=== PATIENT | female | born 1990 | race Caucasian/White ===

== ENCOUNTER 2021-03-04 21:20 | Emergency (ER) | payer OTHER, SELFPAY ==
[2021-03-04 21:53] VITALS: BP 145/93; PULSE 104; RESP 18; TEMP 36.5; O2SAT 100
--- NOTE | 2021-03-04 23:24 | ED.GENADULT ---
HPI - General Adult General Chief complaint: Ear Stated complaint: ear pain Time Seen by Provider: 03/04/21 23:18 Source: patient History of Present Illness HPI narrative: Patient is a 30 y/o female complaining of severe left ear pain starting today. She describes her pain as throbbing. There is no alleviating or exacerbating factor. She denies any fever. Related Data Home Medications Medication Instructions Recorded Confirmed acetazolamide 09/24/19 albuterol sulfate INHALATION 09/24/19 alprazolam 09/24/19 sertraline mg 09/24/19 sumatriptan succinate mg PO 09/24/19 zonisamide 09/24/19 Allergies Allergy/AdvReac Type Severity Reaction Status Date / Time No Known Allergies Allergy Verified 02/25/18 18:28 Review of Systems Constitutional: Constitutional: Denies chills, Denies fever(s), Denies headache(s) and Denies weakness Eyes: Eyes: Denies blurry vision ENT: Reports otalgia, Denies headache(s) and Denies neck pain Cardiovascular: Cardiovascular: Denies chest pain and Denies dyspnea Respiratory: Respiratory: Denies cough and Denies dyspnea Gastrointestinal: Gastrointestinal: Denies abdominal pain, Denies diarrhea, Denies nausea and Denies vomiting Genitourinary: Genitourinary: Denies hematuria and Denies dysuria Musculoskeletal: Musculoskeletal: Denies back pain and Denies neck pain Neurologic: Denies headache(s) and Denies weakness Exam Const: General: no acute distress and well developed Orientation/consciousness: oriented to person, oriented to place, oriented to time and patient oriented x3 HENMT: Head: normocephalic Ears: external ears normal and TM abnormal erythematous on the left General nose exam: Normal external nose present Eyes: General: appearance normal, both eyes and all related structures Conjunctivae: conjunctivae normal Neck: Neck: normal visual inspection and full ROM Chest: Chest palpation & inspection: tenderness Resp: Effort & Inspection: normal respiratory effort Skin: General skin exam: normal color and turgor normal Neuro: General: oriented to person, oriented to place, oriented to time and patient oriented x3 Cognition (Neuro): normal cognition Extrem: General: normal to inspection, full ROM and no pedal edema Course Vital Signs Vital signs: Vital Signs Temperature 36.5 C 03/04/21 21:53 Pulse Rate 104 H 03/04/21 21:53 Respiratory Rate 18 03/04/21 21:53 Blood Pressure 145/93 H 03/04/21 21:53 Pulse Oximetry 100 03/04/21 21:53 Temperature 36.5 C 03/04/21 21:53 Pulse Rate 104 H 03/04/21 21:53 Respiratory Rate 18 03/04/21 21:53 Blood Pressure 145/93 H 03/04/21 21:53 Pulse Oximetry 100 03/04/21 21:53 Medical Decision Making Vital Signs Vital Signs: Vital Signs Temperature 36.5 C 03/04/21 21:53 Pulse Rate 104 H 03/04/21 21:53 Respiratory Rate 18 03/04/21 21:53 Blood Pressure 145/93 H 03/04/21 21:53 Pulse Oximetry 100 03/04/21 21:53 Temperature 36.5 C 03/04/21 21:53 Pulse Rate 104 H 03/04/21 21:53 Respiratory Rate 18 03/04/21 21:53 Blood Pressure 145/93 H 03/04/21 21:53 Pulse Oximetry 100 03/04/21 21:53 Discharge Plan Discharge Clinical Impression: Otitis media Patient Disposition: Home, Self-Care Condition: Stable Instructions: Antibiotic Form, Infecci?n del o?do (ED) Prescriptions: New amoxicillin 500 mg tablet 500 mg PO TID Qty: 30 RF: 0 No Action sumatriptan succinate 100 mg tablet PO RF: 0 acetazolamide 250 mg tablet RF: 0 zonisamide 100 mg capsule RF: 0 alprazolam 0.5 mg tablet RF: 0 albuterol sulfate 90 mcg/actuation HFA aerosol inhaler INHALATION RF: 0 sertraline 50 mg tablet RF: 0 ofloxacin 0.3 % drops 10 drop EACH EAR DAILY 7 Days Qty: 5 RF: 0 Follow-up/Referrals: Nasra,SARAHY Kamara [Primary Care Provider] -
== END 2021-03-04 23:30 | disposition home or self-care (01) ==
PROVIDERS: Emergency Provider Emergency Medicine; PCP Registered Nurse
DX: H66.92 Otitis media, unspecified, left ear (principal)
CPT/HCPCS: 99283

== ENCOUNTER 2022-07-11 18:42 | Emergency (ER) | payer OTHER, SELFPAY ==
[2022-07-11 18:50] VITALS: BP 147/98; PULSE 104; RESP 18; TEMP 37.3; O2SAT 98
--- NOTE | 2022-07-11 19:14 | ED.EAR ---
HPI - Ear Problem General Stated complaint: Right ear swollen Time Seen by Provider: 07/11/22 19:00 Source: patient Mode of arrival: ambulatory Limitations: no limitations History of Present Illness HPI Narrative: Ms. Isaacs is a 32-year-old female patient presenting to the clinic today with complaints of right ear pain. She reports that her ear is swollen and she is having difficulty hearing from it. She denies any recent swimming or putting her head underwater. Related Data Home Medications Medication Instructions Recorded Confirmed acetazolamide 250 mg tablet 09/24/19 albuterol sulfate 90 mcg/actuation inhalation 09/24/19 aerosol inhaler alprazolam 0.5 mg tablet 09/24/19 sertraline 50 mg tablet mg 09/24/19 sumatriptan succinate 100 mg tablet mg PO 09/24/19 zonisamide 100 mg capsule 09/24/19 Allergies Allergy/AdvReac Type Severity Reaction Status Date / Time No Known Allergies Allergy Verified 02/25/18 18:28 Review of Systems Review of Systems: Pertinent positives per HPI. Patient denies any fever, chills, rash, headache, visual changes, dizziness, cough, runny nose, sore throat, shortness of breath, chest pain, palpitations, nausea, vomiting, diarrhea, constipation, abdominal pain, or any urinary issues. PMFSH Comments At the time of my signature, I reviewed and agree with the nursing past medical, surgical, social, and family history. There is no relevant family history pertinent to the patient complaint. Exam Narrative: General: Well-developed, well nourished, in no apparent distress Head: Normocephalic, atraumatic Eyes: Pupils equally round and reactive to light bilaterally, EOM intact, sclera and conjunctive clear, no discharge, lids normal Ears: TMs intact and clear, right ear canals swollen, erythemic, with white exudate, pain going on the right pinna and pulling of the tragus, grossly hearing normal. Nose: Nares patent, no discharge, no inflammation, no sinus tenderness. Mouth: Oropharynx without lesions or masses, good dentition, MMM. Neck: Supple, trachea midline, no enlargement of anterior or posterior cervical nodes, no thyroid masses or goiter palpable. Cardio: Regular rate and rhythm, s1 and s2 normal, no murmur appreciated. Resp: Clear to auscultation bilaterally anteriorly and posteriorly, no rhonchi, rales, wheezing or rubs Course Course Emergency Course: Portions of this record may have been created with voice recognition software. Level of Care: Express Care Visit Vital Signs Vital signs: Vital Signs Temperature 37.3 C 07/11/22 18:50 Pulse Rate 104 H 07/11/22 18:50 Respiratory Rate 18 07/11/22 18:50 Blood Pressure 147/98 H 07/11/22 18:50 Pulse Oximetry 98 07/11/22 18:50 Oxygen Delivery Room Air 07/11/22 18:50 Temperature 37.3 C 07/11/22 18:50 Pulse Rate 104 H 07/11/22 18:50 Respiratory Rate 18 07/11/22 18:50 Blood Pressure 147/98 H 07/11/22 18:50 Pulse Oximetry 98 07/11/22 18:50 Oxygen Delivery Room Air 07/11/22 18:50 Vital signs reviewed Medical Decision Making MDM Narrative Medical decision making narrative: At the time of visit patient is resting comfortably on the exam table. She has diffuse right otitis externa. Ofloxacin eardrops were prescribed for the patient. Supportive measures were discussed and patient voiced understanding of discharge instructions and agrees to treatment plan Differential Diagnosis Differential Diagnosis: Otitis media, otitis externa, eustachian tube dysfunction, otalgia Vital Signs Vital Signs: Vital Signs Temperature 37.3 C 07/11/22 18:50 Pulse Rate 104 H 07/11/22 18:50 Respiratory Rate 18 07/11/22 18:50 Blood Pressure 147/98 H 07/11/22 18:50 Pulse Oximetry 98 07/11/22 18:50 Oxygen Delivery Room Air 07/11/22 18:50 Temperature 37.3 C 07/11/22 18:50 Pulse Rate 104 H 07/11/22 18:50 Respiratory Rate 18 07/11/22 18:50 Blood Pressure 147/98 H 08
== END 2022-07-11 19:25 | disposition home or self-care (01) ==
PROVIDERS: Emergency Provider Nurse Practitioner Family
DX: H60.311 Diffuse otitis externa, right ear (principal)
CPT/HCPCS: 99213; G0463

== ENCOUNTER 2022-07-13 12:41 | Emergency (ER) | payer OTHER, SELFPAY ==
--- NOTE | ~2022-07-13 | CT_ITS ---
EXAMINATION: CT facial bones wo con DATE: 07/13/2022 14:09 INDICATION: R mastoid tenderness, otitis externa . TECHNIQUE: Computed tomography (CT) of the facial bones and maxillofacial region was performed withou t intravenous contrast. Automated exposure control and iterative reconstruction technique were employ ed. The dose-length product was 695.38 mGy-cm. COMPARISON: None. FINDINGS: Soft Tissues: Soft tissue thickening in the bilateral external auditory meati, worse on the right. E nlarged adenoids. Bilateral cervical lymphadenopathy. Prominent but not pathologically enlarged bilat eral parotid lymph nodes. Mild enlargement inflammatory stranding in the right parotid gland. Facial bones: No acute fracture. No lytic or blastic process. No mastoid erosions. The ossicles are intact. Eyes: The globes are intact. The soft tissue planes of the orbits are maintained. Paranasal Sinuses: Minimal aerated secretion in an anterior ethmoid air cell on the right. Retention cyst or polyp in the right inferior maxillary sinus. Bilateral mastoid fluid. Foreign Bodies: No radiopaque foreign bodies. Other Findings: None. IMPRESSION: Bilateral otitis externa and otitis media, more severe on the right. Bilateral mastoid effusions. Mil d right parotiditis. Cervical and adenoid lymphadenopathy. Reviewed, dictated and finalized at location [facility]. IMPRESSION: Bilateral otitis externa and otitis media, more severe on the right. Bilateral mastoid effusions. Mild right parotiditis. Cervical and adenoid lymphadenopathy .
[2022-07-13 12:53] VITALS: BP 152/90; PULSE 96; RESP 20; TEMP 36.5; O2SAT 98
[2022-07-13] MEDS: OFLOXACIN 0.3% OPHTH SOLN 5 ML BTL 3 DROP EACH EAR (14:14)
[2022-07-13 14:29] LABS: Basophils Absolute Auto 0.1 K/mm3 (0.0-0.1); Basophils Percent Auto 0.5 % (0.2-1.2); Eosinophils Absolute Auto 0.1 K/mm3 (0-0.3); Eosinophils Percent Auto 1.1 % (0-4.4); Hematocrit 43.4 % (37.0-47.0); Hemoglobin 13.8 g/dL (12.0-15.0); Immature Granulocyte Absolute 0.05 K/mm3 (0.00-0.031); Immature Granulocyte Percent A 0.4 % (0-0.5); Lymphocytes Absolute Auto 3.09 K/mm3 (0.9-3.2); Lymphocytes Percent Auto 27.2 % (18.3-44.2); Mean Corpuscular HGB Conc 31.8 g/dl (32-36); Mean Corpuscular Hemoglobin 27.7 pg (26-34); Mean Corpuscular Volume 87.1 fl (80-100); Mean Platelet Volume 9.3 fl (7.4-10.4); Monocytes Absolute Auto 0.8 K/mm3 (0.1-0.6); Monocytes Percent Auto 7.3 % (2.6-8.5); Neutrophils Absolute Auto 7.2 K/mm3 (1.3-6.7); Neutrophils Percent Auto 63.5 % (45.5-73.1); Platelet Count Result 343 k/mm3 (150-375); Red Blood Count 4.98 M/mm3 (4.2-5.4); Red Cell Distribution Width 16.1 % (11.5-14.5); White Blood Count 11.4 K/mm3 (4.5-10.0)
[2022-07-13 14:39] LABS: Anion Gap 9 mmol/L (8-16); Blood Urea Nitrogen 7 mg/dL (7-17); Calcium 9.1 mg/dL (8.4-10.2); Carbon Dioxide 28 mmol/L (22-30); Chloride 99 mmol/L (98-107); Estimated CRCL calculation 152 ml/min; Estimated Glomerular Filt Rate > 60; Glucose 124 mg/dL (65-110); Potassium 4.2 mmol/L (3.4-5.0); Sodium 136 mmol/L (137-145)
--- NOTE | 2022-07-13 14:44 | ED.EAR ---
HPI - Ear Problem General Chief complaint: Ear <LISA Sandoval Last Filed: 07/13/22 19:02> Stated complaint: ear swelling <LISA Sandoval Last Filed: 07/13/22 19:02> Time Seen by Provider: 07/13/22 13:46 <LISA Sandoval Last Filed: 07/13/22 19:02> History of Present Illness HPI Narrative: Patient is a 32-year-old female here for evaluation of bilateral ear swelling and pain, R>L over the past several days. She was seen at an urgent care facility upon symptom onset and was prescribed topical antibiotics for presumed otitis externa. She has been using the antibiotics as prescribed, but notes that her ear has continued to swell, and now notes that she cannot get the medication and due to the swelling. Additionally notes some pain behind her ear. Denies any fevers or chills, nausea or vomiting, history of diabetes. <LISA Sandoval Last Filed: 07/13/22 19:02> Related Data Home medications: Home Medications Medication Instructions Recorded Confirmed acetazolamide 250 mg tablet 250 mg PO DAILY 09/24/19 07/11/22 albuterol sulfate 90 mcg/actuation 2 inh inhalation DIRECTED 09/24/19 07/11/22 aerosol inhaler alprazolam 0.5 mg tablet 0.5 mg PO DIRECTED 09/24/19 07/11/22 sumatriptan succinate 100 mg tablet 100 mg PO DIRECTED 09/24/19 07/11/22 zonisamide 100 mg capsule 100 mg PO DAILY 09/24/19 07/11/22 <LISA Sandoval Last Filed: 07/13/22 19:02> Allergies/adverse reactions: Allergies Allergy/AdvReac Type Severity Reaction Status Date / Time No Known Allergies Allergy Verified 07/11/22 19:28 <LISA Sandoval Last Filed: 07/13/22 19:02> Review of Systems Review of Systems: Gen: Denies fevers or chills Eyes: Denies eye pain or visual change ENT: Reports bilateral ear pain. Denies congestion Respiratory: Denies shortness of breath or cough CV: Denies chest pain or palpitations GI: Denies abdominal pain nausea, emesis or diarrhea : denies burning, urgency, frequency or hematuria Musculoskeletal: Denies back pain or muscle pain Neuro: Denies numbness, tingling, weakness or focal weakness Skin: Denies rash Except as documented, all other systems reviewed and negative <Dinora Gonzalez PA-C - Last Filed: 07/13/22 19:02> Exam Narrative: APPEARANCE: Well appearing, no pain in distress, well-nourished. Obese. Head: Normocephalic and atraumatic. EYES: PERRLA/EOMI, conjunctivae clear NOSE: No nasal drainage EARS: Right ear is swollen and erythematous in appearance obscuring canal. Left ear is swollen and erythematous as well but the canal is not obscured. She has tenderness over her right mastoid bone, no overlying erythema. THROAT: Oropharynx is clear. Mucous membranes are moist. NECK: Supple. No adenopathy, no masses. RESPIRATORY: Airway patent, respirations nonlabored. Clear to auscultation bilaterally, no rales, rhonchi, wheezing. CARDIOVASCULAR: Regular rate and rhythm without murmurs, rubs, or gallops. ABDOMINAL: Normoactive bowel sounds. Soft, nontender, nondistended. No rebound tenderness or guarding. MUSCULOSKELETAL: Extremities are warm and well-perfused. Moves all extremities well. No edema. NEURO: Normal speech. No focal neurologic deficits. SKIN: Skin is warm and dry. No rashes. PSYCHIATRIC: Normal affect/mood. <Dinora Gonzalez PA-C - Last Filed: 07/13/22 19:02> Course SHOP REPAIRER/PA Physician Supervision For this patient encounter, I reviewed the SHOP REPAIRER or PA documentation, treatment plan, and medical decision making <Bobby George MD - Last Filed: 07/13/22 20:18> Vital Signs Vital signs: Vital Signs Temperature 97.7 F 07/13/22 12:53 Pulse Rate 96 07/13/22 12:53 Respiratory Rate 20 07/13/22 12:53 Blood Pressure 152/90 H 07/13/22 12:53 Pulse Oximetry 98 07/13/22 12:53 Oxygen Delivery Room Air 07/13/22 12:53 Temperature 97.7 F
== END 2022-07-13 15:20 | disposition home or self-care (01) ==
PROVIDERS: Physician Assistant; Emergency Provider Emergency Medicine
DX: H60.93 Unspecified otitis externa, bilateral (principal); H66.93 Otitis media, unspecified, bilateral
CPT/HCPCS: 36415; 70486; 80048; 85025; 99284; A9270

== ENCOUNTER 2022-09-29 17:45 | Emergency (ER) | payer OTHER, SELFPAY ==
[2022-09-29 18:20] VITALS: BP 158/83; PULSE 92; RESP 20; TEMP 37.3; O2SAT 100
--- NOTE | 2022-09-29 18:37 | ED.EAR ---
HPI - Ear Problem General Chief complaint: Ear Stated complaint: Right Ear Irritation Time Seen by Provider: 09/29/22 18:37 Source: patient Mode of arrival: ambulatory Limitations: no limitations History of Present Illness HPI Narrative: 32-year-old female presents with complaint of right ear pain for 2 days. Reports decreased hearing. Afebrile. Reports history of multiple ear infections. Has never seen ENT. All systems reviewed and negative except as noted above. Related Data Home Medications Medication Instructions Recorded Confirmed acetazolamide 250 mg tablet 250 mg PO DAILY 09/24/19 09/29/22 albuterol sulfate 90 mcg/actuation 2 inh inhalation DIRECTED 09/24/19 09/29/22 aerosol inhaler alprazolam 0.5 mg tablet 0.5 mg PO DIRECTED 09/24/19 09/29/22 sumatriptan succinate 100 mg tablet 100 mg PO DIRECTED 09/24/19 09/29/22 zonisamide 100 mg capsule 100 mg PO DAILY 09/24/19 09/29/22 Allergies Allergy/AdvReac Type Severity Reaction Status Date / Time No Known Allergies Allergy Verified 09/29/22 18:04 Review of Systems Review of Systems: CONSTITUTIONAL: Denies fever, chills, or sweats. EYES: Denies visual changes, redness, or discharge. ENT: Denies rhinorrhea, congestion, sore throat . Reports right ear pain. CARDIOVASCULAR: Denies chest pain, palpitations, or edema. RESPIRATORY: Denies cough or dyspnea. GASTROINTESTINAL: Denies abdominal pain, nausea, vomiting, or diarrhea. GENITOURINARY: Denies dysuria or hematuria. SKIN: Denies rash or itching. MUSCULOSKELETAL: Denies back pain, joint pain, or myalgia. NEUROLOGIC: Denies headache, numbness, or weakness. PSYCHIATRIC: Denies anxiety or depression. All other systems reviewed are negative, except as documented in HPI. PMFSH Comments At time of signature, agree with nursing past medical, surgical, social and family history. There is no relevant family history pertinent to the presenting complaint. Exam Narrative: GENERAL: This is a well-nourished, well-developed patient, in no apparent distress. HEAD: normocephalic, atraumatic. EYES: PERRL. Sclera clear/white. Vision is grossly intact. EARS: External ears normal, Bilateral TMs normal. Right ear canal is erythematous, mildly swollen with yellow milky drainage. Left ear canal is normal. NOSE: External nose normal NECK: Neck supple, non-tender without lymphadenopathy, masses or thyromegaly. CARDIOVASCULAR: Regular rate and rhythm without murmurs, gallops, or rubs. RESPIRATORY: Clear to auscultation. Breath sounds equal bilaterally. No wheezes, rales, or rhonchi. SKIN: warm, Dry, intact with no suspicious lesions or rash, good texture and turgor. NEURO: awake, alert, and oriented to person, place and time. There were no obvious focal neurologic abnormalities. EXTREMITIES: No joint tenderness, effusion, or edema noted. Course Course Level of Care: Express Care Visit Vital Signs Vital signs: Reviewed Medical Decision Making MDM Narrative Medical decision making narrative: Patient is aware of diagnosis, understands and agrees to treatment plan. Anticipatory guidance given. Patient agrees to follow-up as directed and is aware of reasons to seek care at the emergency department. Portions of this record may have been created with voice recognition software Discharge Plan Discharge Clinical Impression: Acute otitis externa of right ear Patient Disposition: Home, Self-Care Condition: Stable Instructions: Antibiotic Form, Swimmer's Ear (ED) Additional Instructions: Place eardrops as prescribed. Take ibuprofen every 6-8 hours to treat your pain. Follow-up with your primary care physician if symptoms not improving. Prescriptions: New [id number] 3.5-10,000-1 mg/mL-unit/mL-% drops,suspension 4 drp RIGHT EAR Q8H 10 Days Qty: 10 0RF No Action sumatriptan succinate 100 mg tablet 100 mg PO DIRECTED acetazolamide 250 mg tablet 250 mg
== END 2022-09-29 18:42 | disposition home or self-care (01) ==
PROVIDERS: Emergency Provider Nurse Practitioner Family; PCP Registered Nurse
DX: H60.91 Unspecified otitis externa, right ear (principal)
CPT/HCPCS: 99213; G0463

== ENCOUNTER 2022-10-04 10:57 | Emergency (ER) | payer OTHER, SELFPAY ==
[2022-10-04 11:04] VITALS: BP 137/77; PULSE 94; RESP 20; TEMP 36.4; O2SAT 98
--- NOTE | 2022-10-04 11:12 | ED.EAR ---
HPI - Ear Problem General Chief complaint: Ear Stated complaint: Left ear pain Time Seen by Provider: 10/04/22 11:12 Source: patient, RN notes reviewed and old records reviewed Mode of arrival: ambulatory Limitations: no limitations History of Present Illness HPI Narrative: 32-year-old female presents to the [facility] with complaints of left ear pain was here on Friday with the same complaint But in the right ear, Prescribed ear drops. Denies fevers. No mastoid tenderness. No external redness or swelling Denies any sinus issues Related Data Home Medications Medication Instructions Recorded Confirmed acetazolamide 250 mg tablet 250 mg PO DAILY 09/24/19 10/04/22 albuterol sulfate 90 mcg/actuation 2 inh inhalation DIRECTED 09/24/19 10/04/22 aerosol inhaler alprazolam 0.5 mg tablet 0.5 mg PO DIRECTED 09/24/19 10/04/22 sumatriptan succinate 100 mg tablet 100 mg PO DIRECTED 09/24/19 10/04/22 zonisamide 100 mg capsule 100 mg PO DAILY 09/24/19 10/04/22 Allergies Allergy/AdvReac Type Severity Reaction Status Date / Time No Known Allergies Allergy Verified 10/04/22 11:20 Review of Systems Review of Systems: All systems reviewed & are unremarkable except as noted in HPI and below Constitutional: Constitutional: Reports no additional constitutional complaints, Denies chills and Denies fever(s) Eyes: Eyes: Reports no additional eye complaints ENT: Reports as per HPI Cardiovascular: Cardiovascular: Reports no additional cardiovascular complaints Respiratory: Respiratory: Reports no additional respiratory complaints Gastrointestinal: Gastrointestinal: Reports no additional gastrointestinal complaints Musculoskeletal: Musculoskeletal: Reports no additional musculoskeletal complaints Integumentary/Breasts: Skin/Breast: Reports system reviewed and no additional complaints, except as docu Neurologic: Reports system reviewed and no additional complaints, except as documented Psychiatric: Psychiatric: Reports no additional psychiatric complaints Allergic/Immunologic: Allergic/Immunologic: Reports no additional allergic/immunologic complaints PMFSH Past Medical History Medical History (Updated 10/04/22 @ 17:55 by Bina Johnson APRN) Anxiety Comments At the time of my signature, I reviewed and agree with the nursing past medical, surgical, social, and family history. There is no relevant family history pertinent to the patient complaint. Exam Const: General: healthy appearing, comfortable, no acute distress, well developed, alert and well nourished Nutritional Appearance: well nourished and obese Orientation/consciousness: patient oriented x3 Limitations: no limitations HENMT: Head: normal to inspection Ears: external ears normal, mastoids normal, no periauricular adenopathy, Abnormal EAC present erythema bilateral, edema bilateral and otic discharge purulent on the right, normal mastoids bilaterally and no periauricular adenopathy Face/Nose/Sinus: Normal external nose present, Normal nares present and Normal nasal mucous membranes and turbinates present Face and sinus: normal facial exam and sinuses nontender Mouth: Yes Normal oral and palatal mucosa present, Yes lip normal and Yes moist mucous membranes Throat: posterior oropharynx normal, tonsils normal and uvula midline Eyes: General: appearance normal, both eyes and all related structures Conjunctivae: conjunctivae normal Pupils: Equal, round and reactive pupils present Neck: Neck: normal visual inspection, full ROM, no lymphadenopathy and no meningeal signs Chest: Chest palpation & inspection: normal inspection of the chest Resp: Effort & Inspection: normal respiratory effort and no use of accessory muscles Auscultation: clear to auscultation bilaterally, no crackles, no rales, no rhonchi and no wheezes Cardio: Rate: regular rate Rhythm: regular rhythm Back/Spine/Pelvis: Cervical Spine: cervical ROM normal and No Cervical spine tend
== END 2022-10-04 11:30 | disposition home or self-care (01) ==
PROVIDERS: Emergency Provider Nurse Practitioner; PCP Registered Nurse
DX: H60.8X3 Other otitis externa, bilateral (principal); H66.92 Otitis media, unspecified, left ear
CPT/HCPCS: 99213; G0463